=== PATIENT | male | born 1940 | race Caucasian/White ===

== ENCOUNTER 2018-11-16 17:37 | Inpatient (IN) | payer OTHER ==
[~2018-11-16] VITALS: Ht 180.3 cm; Wt 102.3 kg
--- NOTE | ~2018-11-16 | HC ---
[facility] [place] [address] CONSULTATION Name: ISAIAH MADRID Room #: 203-P ADM IN M.R.#: [id number] Admission: 11/16/18 Attend Phys: Prateek Nava MD Discharge: Date of : 36 Report #: [id number] THIS REPORT FOR: //name// CC: Prateek Niño PRIMARY CARE PHYSICIAN: Dr. Niño at [place]. CHIEF COMPLAINT: Chest pain. HISTORY OF PRESENT ILLNESS: The patient is an 78-year-old man admitted to the Emergency Room at [facility] for chest discomfort. We are asked to see him in consultation. He yesterday was transferring heavy cartons of food because his refrigerator had broken yesterday. He had a sudden onset of a sharp left-sided pain. It did worsen with positional changes. It only lasted 5-15 minutes long. There was some concern that it felt similar to his prior PCI pain, so he went to the Emergency Room. His ECG demonstrated a sinus rhythm with borderline LVH. His cardiac troponin levels overnight have been normal. This morning, he is chest pain free. He had been feeling relatively well until this episode. He has not been short of breath. He was not having any exertional chest pain, pressure, shortness of breath, palpitations, heart racing or skipping. He has not had any fevers, chills or cough. His symptoms were nonradiating. They were not associated with reproducibility with palpation. He denied neck or jaw discomfort. PAST MEDICAL HISTORY: PCI to his LAD in 2008, bare metal stent to the RCA that same year. Hypertension, diabetes, hyperlipidemia, tonsillectomy. There is a nuclear stress test from 2012, which showed a nonischemic response. His ejection fraction was normal at 68%. He had a cardiac catheterization, most recently in 2009, which showed patency of his stents. MEDICATIONS: Include Lasix 40 mg p.o. b.i.d., carvedilol 6.25 mg p.o. b.i.d., aspirin 81 mg daily, amlodipine 10 mg daily, glyburide 5 mg, insulin. ALLERGIES: CODEINE, PENICILLIN, LOVASTATIN. He is taking lovastatin too. SOCIAL HISTORY: He is . He is not active tobacco use. REVIEW OF SYSTEMS: GENERAL: No fevers or chills. PULMONARY: No wheezing or cough. CARDIOVASCULAR: Positive chest pain. No shortness of breath, no orthopnea, no PND. No palpitations. NEUROLOGIC: No headaches, blurry vision, slurred speech, visual changes. THROAT: Denies any dysphagia. SKIN: No rashes. [address] [address] CONSULTATION Name: ISAIAH MADRID Room #: 203-P [facility] IN M.R.#: [id number] Admission: 11/16/18 Attend Phys: Prateek Nava MD Discharge: Date of : 36 Report #: [id number] MUSCULOSKELETAL: No joint pain or swelling. PAST SURGICAL HISTORY: No recent surgeries. PHYSICAL EXAMINATION: VITAL SIGNS: Blood pressure is 146/70, temperature is 36.6, pulse of 63 this morning. Room air sats 95%. GENERAL: Pleasant, healthy-appearing elderly male, who is alert, in no apparent distress. HEENT: Eyes are intact. No facial asymmetry. NECK: Supple. No jugular venous distention. CARDIOVASCULAR: Regular. There are no murmurs or S3. LUNGS: Clear to auscultation. ABDOMEN: Soft, nontender. EXTREMITIES: There is no peripheral edema. Chest x-ray shows no acute process. LABORATORY DATA: Hemoglobin 13.6, white blood cell count is 11.9, platelet count is 232,000. Troponin I is 0.06 x 2 sets. Sodium is 137, potassium is 4.3, chloride is 100, BUN is 26, creatinine is 1.4. LDL cholesterol is 112. IMPRESSION: 1. Chest pain. His symptoms seem musculoskeletal, possibly from an injury from lifting heavy boxes, but there is a possibility of this being angina. He is ruled out for a myocardial infarction. The patient reports he has had a recent stress test at outpatient location. The record of which is not available at this inpatient location. Based on the fact that he is ruled out and is asymptomatic this morning, we can arrange for outpatient followup within a week with the nurse practitioner. If he has not had a stress test within the last 1-2 years, we can arrange for this as an outpatient. 2. Coronary artery disease. We will continue aggressive medical therapy including aspirin. 3. Hypertension. This is stable. 4. Hyperlipidemia. His LDL was elevated, and this can be adjusted as an outpatient. By: [id number] Raffy Skelton MD, FACC /nt
[~2018-11-16 17:37] MED LIST: ADULT LOW DOSE81 MG; ALLEGRA60 MG; ALPRAZOLAM 0.50.5 M1; AMLODIPINE BESY10 MG; ATROVENT30 ML; B COMPLEX-VITA1 EACH; B-12250 MCG; CARVEDILOL6.25 MG; CYCLOBENZAPRINE10 MG; DIOVAN320 MG; FISHOIL; FOLIC ACID 40400 MC1; FUROSEMIDE 40 M40 M1; GARLIC OIL1 EAC1; GLUCOPHAGE500 MG; GLYBURIDE 5 MG T5 M1; HYDRALAZINE 5050 M1 PO; KLOR-CON 1010 MEQ; LOVASTAT40; PROAIR HFA8.5 GM; SYMBICORT160 MCG/4.
[2018-11-16 17:41] VITALS: BP 114/62
[2018-11-16 18:03] LABS: ABSOLUTE NEUTROPHILS 6.9 thou/uL (1.4-8.2); BASOPHILS 1.3 % (0.0-2.0); HEMATOCRIT 41.2 % (42.0-52.0); HEMOGLOBIN 13.6 gm/dL (14.0-18.0); LYMPHOCYTES 28.7 % (24.0-44.0); MCH 28.6 pg (26.0-34.0); MCV 86.8 fL (80.0-100.0); MONOCYTES 6.5 % (1.0-8.0); PLATELET COUNT 232 thou/uL (150-400); POLYS 57.5 % (36.0-66.0); RBC 4.75 mil/uL (4.50-6.00); RDW 15.6 % (10.5-14.5); WBC 11.9 thou/uL (4.0-11.0)
[2018-11-16 18:11] LABS: ANION GAP 9 mmol/L (7-16); BUN 26 mg/dL (7-18); CALCIUM 9.8 mg/dL (8.5-10.1); CHLORIDE 100 mmol/L (98-107); CO2 28 mmol/L (21-32); CREATININE 1.4 mg/dL (0.7-1.3); GLUCOSE 80 mg/dL (74-106); POTASSIUM 4.3 mmol/L (3.5-5.1); SODIUM 137 mmol/L (136-145)
[2018-11-16 18:20] LABS: ALBUMIN 4.4 g/dL (3.4-5.0); LIPASE 775 U/L (73-393); MAGNESIUM 1.8 mg/dL (1.8-2.4); SGOT 39 U/L (15-37); SGPT 33 U/L (30-65); TOTAL BILIRUBIN 0.4 mg/dL (<0.1-1.0); TROPONIN-I <0.06 ng/mL (<0.06)
[2018-11-16 19:56] VITALS: BP 112/58
[2018-11-16 20:28] VITALS: BP 154/73
[2018-11-17 00:38] LABS: LIPASE 269 U/L (73-393); TROPONIN-I <0.06 ng/mL (<0.06)
[2018-11-17 00:49] VITALS: BP 136/64
[2018-11-17 00:52] LABS: CHOLESTEROL 178 mg/dL (<200); HDL CHOLESTEROL 51 mg/dL (>40); LDL CHOLESTEROL 112 mg/dL (<100); TC:HDL 3.5 Ratio (Not establshd); TRIGLYCERIDE 75 mg/dL (<150); VLDL 15 mg/dL (<40)
[2018-11-17 00:53] LABS: SERUM ASSESSMENT Clear
[2018-11-17 04:30] VITALS: BP 131/65
--- NOTE | 2018-11-17 05:41 | NUR ---
PT IS AN ER ADMIT WITH CHEST PAIN. PT IS STABLE. ADMISSION ASSESSMENT AND EDUCTION COMPLETED. VITAL SIGNS STABLE. PT IS ALERT AND ORIENTED WITH NO SIGN OF DISTRESS NOTED. PT IS STABLE.
[2018-11-17 07:44] VITALS: BP 146/70
--- NOTE | 2018-11-17 08:19 | EKG ---
[address] [place] [address] ELECTROCARDIOGRAM REPORT Name: ISAIAH MADRID Room #: 203-P ADM IN M.R.#: [id number] Admission: 11/16/18 Attend Phys: Prateek Nava MD Discharge: Date of : 36 Report #: [id number] THIS REPORT FOR: //name// [facility] ED Test Date: 2018-11-16 Test Time: 17:47:22 Pat Name: ISAIAH MADIRD Department: Room: [facility] Gender: M Mud Jack Nozzleman: DIDI : 1940 Requested By: Maggie Driver Order Number: [id number] MD: Reese Nichole Measurements Intervals Donie Rate: 64 P: 3 SD: 189 QRS: -22 QRSD: 98 T: 55 QT: 393 QTc: 406 Interpretive Statements Sinus rhythm Borderline left axis deviation Borderline T wave abnormalities Compared to ECG 10/10/1999 04:27:18 Atrial premature complex(es) no longer present Electronically Signed On 11-17-2018 8:19:16 MULT AU MATIC OPERATOR by Reese Nichole [email or web address] <ELECTRONICALLY SIGNED> By: Reese Nichole MD, [facility] 11/17/18 0819 [id number] Reese Nichole MD, [facility] /EPI
[2018-11-17 11:00] VITALS: BP 148/70
--- NOTE | 2018-11-17 11:43 | NUR ---
VSS-AFEBRILE. NO FURTHER REPORTS OF CHEST PAIN. DISCUSSED ALL DC INSTRUCTIONS INCLUDING FOLLOW UP OUTPATIENT APPT ON 11/24/[address] MANZO. VERBALIZED UNDERSTANDING OF ALL DC INFORMATION, GIVEN COPY FOR PERSONAL RECORD. IV AND FUR OPERATOR REMOVED. LEFT UNIT BY WHEELCHAIR WITH ALL PERSONAL BELONGINGS, AND TRANSPORTED BY VOLUNTEER.
== END 2018-11-17 11:30 | disposition home or self-care (01) | DRG 206 ==
LOC: ER 17:37 → 2N 18:38 → EROBS 18:38 → 2N 20:12
PROVIDERS: Nurse Practitioner Acute Care; Nurse Practitioner Family; ADMIT Hospitalist
DX: M94.0 Chondrocostal junction syndrome [Tietze] (principal); N17.9 Acute kidney failure, unspecified; E87.2 Acidosis; I25.10 Atherosclerotic heart disease of native coronary artery without angina pectoris; I10 Essential (primary) hypertension; E11.9 Type 2 diabetes mellitus without complications; E78.5 Hyperlipidemia, unspecified; E66.9 Obesity, unspecified; J44.9 Chronic obstructive pulmonary disease, unspecified; F41.9 Anxiety disorder, unspecified; G47.30 Sleep apnea, unspecified; Z88.0 Allergy status to penicillin; Z88.8 Allergy status to other drugs, medicaments and biological substances; Z95.5 Presence of coronary angioplasty implant and graft; Z82.49 Family history of ischemic heart disease and other diseases of the circulatory system; Z79.899 Other long term (current) drug therapy; Z79.82 Long term (current) use of aspirin; Z68.31 Body mass index [BMI] 31.0-31.9, adult; Z82.3 Family history of stroke; Z87.891 Personal history of nicotine dependence
CPT/HCPCS: 10081

== ENCOUNTER → 2019-05-28 | Outpatient (CLI) | payer OTHER | LOC: NUC 08:00 | DX: I25.118 Atherosclerotic heart disease of native coronary artery with other forms of angina pectoris (principal); I25.9 Chronic ischemic heart disease, unspecified; E78.5 Hyperlipidemia, unspecified; I10 Essential (primary) hypertension; J44.9 Chronic obstructive pulmonary disease, unspecified; E11.9 Type 2 diabetes mellitus without complications; Z87.891 Personal history of nicotine dependence; Z79.899 Other long term (current) drug therapy; Z88.8 Allergy status to other drugs, medicaments and biological substances; Z88.0 Allergy status to penicillin ==